=== PATIENT | male | born 1990 | race Caucasian/White ===

== ENCOUNTER 2017-09-21 15:25 | Emergency (ER) | payer SELFPAY ==
[~2017-09-21] VITALS: Ht 167.6 cm; Wt 100.0 kg
[2017-09-21] MEDS ORDERED: HYDROCODONE/ACETAMINOPHEN 5/325MG TABLET PO ONE (19:45)
[2017-09-21 20:15] VITALS: BP 153/85
== END 2017-09-21 20:39 | disposition home or self-care (01) ==
LOC: ER 16:18
DX: S62.521A Displaced fracture of distal phalanx of right thumb, initial encounter for closed fracture (principal); W22.8XXA Striking against or struck by other objects, initial encounter; Y93.89 Activity, other specified; Y92.89 Other specified places as the place of occurrence of the external cause; Y99.8 Other external cause status; Z98.890 Other specified postprocedural states
CPT/HCPCS: 29125; 73130; 99284

== ENCOUNTER 2017-10-15 11:56 | Emergency (ER) | payer SELFPAY ==
[~2017-10-15] VITALS: Ht 167.6 cm; Wt 100.0 kg
[2017-10-15 12:08] VITALS: BP 136/90
== END 2017-10-15 14:39 | disposition home or self-care (01) ==
LOC: ER 12:54
DX: Z00.00 Encounter for general adult medical examination without abnormal findings (principal)
CPT/HCPCS: 99281